=== PATIENT | male | born 1955 | race Caucasian/White ===

== ENCOUNTER → 2019-06-29 | Outpatient (CLI) | payer OTHER ==
[~2019-06-29] MED LIST: MIDRIN (DURADR1 CAP PO
== END | disposition home or self-care (01) ==
LOC: CT 00:10
DX: J43.8 Other emphysema (principal); I72.8 Aneurysm of other specified arteries

== ENCOUNTER → 2020-08-30 | Outpatient (CLI) | payer OTHER ==
[~2020-08-30] MED LIST changes: +AMLODIPINE BESY10 MG PO; +ASPIRIN81 M1 PO; +FINASTERIDE5 M1 PO; +FLOMAX0.4 MG PO; +Lopressor25 MG PO; +POTASSIUM CHLO10 ME5 PO; +ZYLOPRIM100 MG PO; +ZYRTEC10 M2 PO
== END | disposition home or self-care (01) ==
LOC: COVID19 13:00
PROVIDERS: ATTEND Hospitalist
DX: U07.1 COVID-19 (principal)

== ENCOUNTER 2020-08-31 10:26 | Inpatient (IN) | payer OTHER ==
[~2020-08-31] VITALS: Ht 172.7 cm; Wt 86.6 kg
[~2020-08-31 10:26] MED LIST changes: -AMLODIPINE BESY10 MG PO; -ASPIRIN81 M1 PO; -FINASTERIDE5 M1 PO; -FLOMAX0.4 MG PO; -Lopressor25 MG PO; -POTASSIUM CHLO10 ME5 PO; -ZYLOPRIM100 MG PO; -ZYRTEC10 M2 PO
[2020-08-31 10:37] VITALS: BP 122/67
[2020-08-31 10:45] LABS: BASO % 0.2 % (0.0-1.0); EOS % 0.4 % (1.0-4.0); HEMATOCRIT 40.3 % (42.0-52.0); LYMPH # 0.9 10*3/uL (1.3-4.4); LYMPH % 18.8 % (27.0-41.0); MEAN CELL VOLUME 80.4 fl (80.0-94.0); MEAN CORPUSCULAR HGB 27.1 pg (27.0-31.0); MEAN CORPUSCULAR HGB CONC 33.7 g/dl (33.0-37.0); MEAN PLATELET VOLUME 10.6 fl (9.6-12.3); MONO # 0.3 10*3/uL (0.1-1.0); MONO % 5.8 % (3.0-9.0); NEUT # 3.7 10*3/uL (2.3-7.9); NEUT % 74.4 % (47.0-73.0); PLATELET COUNT AUTOMATED 142 10*3/uL (130-400); RED BLOOD COUNT 5.01 10*6/uL (4.50-5.90); RED CELL DISTRI WIDTH 14.5 % (0-14.5)
[2020-08-31 10:56] LABS: ACT PARTIAL THROMBO TIME 32.5 SECONDS (20.0-32.1)
[2020-08-31 11:01] LABS: ALKALINE PHOSPHATASE 201 U/L (45-117); BUN 38 mg/dl (7-24); CHLORIDE 108 mmol/L (98-107); CREATININE 2.48 mg/dL (0.70-1.30); POTASSIUM 3.7 mmol/L (3.5-5.1); SGOT/AST 49 IU/L (3-35); SGPT/ALT 35 U/L (12-78); SODIUM 139 mmol/L (136-145)
[2020-08-31 11:04] LABS: TROPONIN I < 0.015 ng/ml (<0.045)
--- NOTE | 2020-08-31 12:47 | NUR ---
PT'S SISTER ALFONSO JOHNSON CALLS...[phone]. DR IN WITH PT NOW, WILL CALL BACK LATER TO SPEAK WITH PT.
--- NOTE | 2020-08-31 13:00 | NUR ---
VERBAL ORDER TO CANCEL EKG #2 AND #3
--- NOTE | 2020-08-31 14:21 | NUR ---
NOW CALLS AND SPEAKS AT LENGTH WITH PT. MEAL TRAY FINISHED. PT HAS NO VOICED COMPLAINTS. POX REMAINS BETWEEN 90-91% ON 4L NC O2 SINCE ARRIVAL. PT STATES SOB HAS RESOLVED. OTHER VITALS STABLE AND WITHIN NORMAL LIMITS. WATCHING TV.
[2020-08-31 14:22] VITALS: BP 126/66
--- NOTE | 2020-08-31 15:02 | NUR ---
NURSE REPORT TO ABBEY EASLEY, FOR CO NTINUATION OF CARE.
[2020-08-31] MEDS ORDERED: FLOMAX0.4 MG PO (15:25)
[2020-08-31 15:29] VITALS: BP 105/73
--- NOTE | 2020-08-31 15:39 | NUR ---
PT [facility] AND IS NOT SURE WHAT MEDICATIONS HE TAKES OTHER THAN FLOMAX FOR HIS PROSTATE.
--- NOTE | 2020-08-31 16:02 | NUR ---
REPIRATORY AT BEDSIDE TO DRAW ABG'S
[2020-08-31 16:15] VITALS: BP 118/80
[2020-08-31 16:25] LABS: ABG BASE EXCESS -4.2 mmol/L (-2.0-2.0); ARTERIAL BLOOD GAS PH 7.453 (7.35-7.45)
--- NOTE | 2020-08-31 16:25 | NUR ---
I DID NOW SPEAK WITH PT'S FRIEND CARLOS WHO PROVIDED ME HIS MED LIST FROM HOME BEST SHE COULD DETERMNINE AND INPUT IT INTO THE MED-REC
[2020-08-31] MEDS ORDERED: Lopressor25 MG PO (16:27)
[2020-08-31] MEDS ORDERED: ZYRTEC10 M2 PO (16:27)
[2020-08-31] MEDS ORDERED: FINASTERIDE5 M1 PO (16:28)
[2020-08-31] MEDS ORDERED: ASPIRIN81 M1 PO (16:29)
[2020-08-31] MEDS ORDERED: AMLODIPINE BESY10 MG PO (16:29)
[2020-08-31] MEDS ORDERED: POTASSIUM CHLO10 ME5 PO (16:30)
[2020-08-31] MEDS ORDERED: ZYLOPRIM100 MG PO (16:31)
--- NOTE | 2020-08-31 17:21 | NUR ---
PT 02 INCREASED TO 8L PER PHYSICIAN.
--- NOTE | 2020-08-31 18:42 | NUR ---
ORTHOSTATIC BLOOD PRESSURES. 126/62 P-77 STANDING 119/62 P-80 STANDING.
[2020-08-31 19:06] VITALS: BP 102/62
[2020-08-31 20:51] VITALS: BP 116/82
--- NOTE | 2020-08-31 20:51 | NUR ---
A 64, admitted to , under the services of SACHIN Roberts DO with a diagnosis of SUSPECTED COVID-19. Chief complaint is SOB. Patient arrived via bed from ER. Monitor applied. Initial assessment completed. Vital signs taken and recorded. SACHIN ROBERTS DO notified of admission to the unit. Orders received. See assessment for past medical history, medications and allergies. Patient and/or family oriented to unit. [facility] visitation policy reviewed. Clothing/patient valuable form completed. RAMSES SCHMIDT
--- NOTE | 2020-08-31 22:10 | NUR ---
DR. YOON NOTIFIED OF CONSULT. PT ON 15LHF. PT O2 FLUCTUATING 88-94%. PER DR. YOON, PT TO HAVE ORDER FOR BIPAP. PT REFUSING TO BE INTUBATED, STATES "MY WAS NEVER THE SAME AFTER THAT, I DONT WANT ANY OF IT. ILL TRY THE BIPAP, BUT I WANT TO BE A COMFORT CARE" DR. YOON MADE AWARE. STATED TO PUT ORDER IN FOR CC, AND BIPAP ORDER. PT TO REMAIN ON FLOOR AND NOT BE TRANSFERRED TO ICU.
--- NOTE | 2020-08-31 23:00 | NUR ---
PLACED PATIENT ON BIPAP PER ORDER. 09/07, 75%O2, SPO2 98%, HR 73. TOLERATING WELL
[2020-09-01] VITALS: BP 116/84
--- NOTE | 2020-09-01 01:00 | NUR ---
PT TOLERATING BIPAP. NO COMPLAINTS. CALL LIGHT IN REACH
--- NOTE | 2020-09-01 04:00 | NUR ---
PT SLEEPING AT THIS TIME, BIPAP IN PLACE. PT RESPIRATIONS EASY AND UNLABORED. NO DISTRESS NOTED. CALL LIGHT IN REACH
[2020-09-01 06:06] LABS: ALBUMIN 2.6 gm/dl (3.1-4.5); CREATININE 1.7 mg/dL (0.70-1.30); POTASSIUM 4.3 mmol/L (3.5-5.1); TOTAL PROTEIN 6.5 gm/dL (6.4-8.2)
[2020-09-01 06:12] LABS: HEMATOCRIT 37.6 % (42.0-52.0); LYMPH # 0.5 10*3/uL (1.3-4.4); LYMPH % 10.2 % (27.0-41.0); MEAN CELL VOLUME 80.7 fl (80.0-94.0); MEAN CORPUSCULAR HGB CONC 33.5 g/dl (33.0-37.0); MEAN PLATELET VOLUME 10.7 fl (9.6-12.3); MONO # 0.2 10*3/uL (0.1-1.0); MONO % 3.5 % (3.0-9.0); NEUT # 4.4 10*3/uL (2.3-7.9); NEUT % 85.9 % (47.0-73.0); PLATELET COUNT AUTOMATED 156 10*3/uL (130-400); RED BLOOD COUNT 4.66 10*6/uL (4.50-5.90); RED CELL DISTRI WIDTH 14.3 % (0-14.5); THYROID STIM HORMONE (HS) 0.56 uIU/ml (0.358-4.75); WHITE BLOOD COUNT 5.1 10*3/uL (4.8-10.8)
--- NOTE | 2020-09-01 06:41 | NUR ---
DR. YOON CALLED. UPDATED ON PT. ORDERED ABG. RESPIRATORY NOTIFIED. NO OTHER ORDERS AT THIS TIME.
--- NOTE | 2020-09-01 06:42 | NUR ---
DR. DAWN'S ANSWERING SERVICE NOTIFIED OF CONSULT
[2020-09-01 07:15] LABS: VITAMIN D, 25-HYDROXY 51.7 ng/mL (30-100)
[2020-09-01 07:16] LABS: FERRITIN 810.8 ng/mL (22.0-322.0)
[2020-09-01 07:35] LABS: ABG BASE EXCESS -4.9 mmol/L (-2.0-2.0); ARTERIAL BLOOD GAS PH 7.42 (7.35-7.45)
[2020-09-01 08:00] VITALS: BP 119/74
--- NOTE | 2020-09-01 09:00 | NUR ---
Transportation Manager in to talk to patient. Patient states lives at home with girlfriend. There are no steps in the home. Physician: argentina shultz [facility] Home health services: none Patient's level of ADLs: INDEPENDENT Patient has working utilities: all working DME: none Follow-up physician's appointment after d/c: will be made by hospitalist nurse director upon discharge Does patient want to access PORTAL?: no Discharge plan discussed with patient, he lives at home with girlfriend, he states he gets around fine, he states he would like to return home when discharged. case mangaement will follow, patient is currently on 15l of oxygen,. CARLOS MCCARTNEY
[2020-09-01 12:00] VITALS: BP 117/79
[2020-09-01 16:00] VITALS: BP 120/67
[2020-09-01 20:00] VITALS: BP 107/68
[2020-09-02] VITALS: BP 106/75
--- NOTE | 2020-09-02 00:30 | NUR ---
HEPARIN GTT INITIATED PER 2 RN'S
--- NOTE | 2020-09-02 00:30 | NUR ---
Pt placed on BiPap / - FiO2 75% - Alarms on and audible - SpO2 99%
[2020-09-02 06:08] LABS: HEMATOCRIT 36.9 % (42.0-52.0); LYMPH # 0.6 10*3/uL (1.3-4.4); LYMPH % 6.5 % (27.0-41.0); MEAN CELL VOLUME 81.1 fl (80.0-94.0); MEAN CORPUSCULAR HGB 27.3 pg (27.0-31.0); MEAN CORPUSCULAR HGB CONC 33.6 g/dl (33.0-37.0); MEAN PLATELET VOLUME 9.8 fl (9.6-12.3); MONO # 0.3 10*3/uL (0.1-1.0); MONO % 3.7 % (3.0-9.0); NEUT # 7.9 10*3/uL (2.3-7.9); NEUT % 88.5 % (47.0-73.0); PLATELET COUNT AUTOMATED 184 10*3/uL (130-400); RED BLOOD COUNT 4.55 10*6/uL (4.50-5.90); RED CELL DISTRI WIDTH 14.2 % (0-14.5); WHITE BLOOD COUNT 8.9 10*3/uL (4.8-10.8)
[2020-09-02 06:17] LABS: ALBUMIN 2.6 gm/dl (3.1-4.5); CREATININE 1.48 mg/dL (0.70-1.30); POTASSIUM 4.3 mmol/L (3.5-5.1); TOTAL PROTEIN 6.3 gm/dL (6.4-8.2)
[2020-09-02 07:57] LABS: ABG BASE EXCESS -3.8 mmol/L (-2.0-2.0); ARTERIAL BLOOD GAS PH 7.441 (7.35-7.45)
[2020-09-02 08:00] VITALS: BP 120/67
--- NOTE | 2020-09-02 08:20 | NUR ---
PT'S POX AT 78% ON 15L HIGH FLOW NASAL CANNULA. PATIENT STATES HE DOES FEEL SHORT OF BREATH BUT STATES "I DO NOT WANT ANYTHING DONE FOR ME, JUST LET ME " PATIENT IS AGGREEABLE TO WEAR NONREBREATHER. NONREBREATHER APPLIED, PULSE OX NOW 91%. WILL CONTINUE TO MONITOR CLOSELY.
--- NOTE | 2020-09-02 08:37 | NUR ---
DR CLEMENTS NOTIFIED OF PATIENTS NEED FOR NONREBREATHER.
--- NOTE | 2020-09-02 09:00 | NUR ---
case management talks with patient, he continues on bipap and 15l of oxygen, not ready for discharge at this time, patient continues to want to be discharged home when stable. case management will follow
--- NOTE | 2020-09-02 10:00 | NUR ---
Received call from oFx at the [facility]. Given clinical update. He states he will call again tomorrow to check on patient.
[2020-09-02 12:00] VITALS: BP 147/50
[2020-09-02 16:00] VITALS: BP 117/56
--- NOTE | 2020-09-02 19:30 | NUR ---
PATIENT RESTING IN BED. DENIES ANY NEEDS OR COMPLAINTS AT THIS TIME. ASSESSMENT COMPLETE. 15L NONREBREATHER MASK IN PLACE. CALL LIGHT WITHIN REACH. HEPARIN DRIP RUNNING PER ORDER.
[2020-09-02 20:00] VITALS: BP 129/55
--- NOTE | 2020-09-02 20:00 | NUR ---
PATIENT DNRCC PATIENT ON CHART BUT WAS NOT SIGNED. CALLED AND UP TO SIGN PAPER.
--- NOTE | 2020-09-02 23:59 | NUR ---
24 HR chart check completed.
[2020-09-03] VITALS: BP 107/57
--- NOTE | 2020-09-03 00:40 | NUR ---
PATIENT APPT 27.6. HEPARIN DRIP ADJUSTED PER POLICY. 40U/KG BOLUS GIVEN AND RATE INCREASED 2 UNITS/KG/HR.
[2020-09-03 06:57] LABS: ALBUMIN 2.7 gm/dl (3.1-4.5); ALKALINE PHOSPHATASE 232 U/L (45-117); BUN 34 mg/dl (7-24); CHLORIDE 112 mmol/L (98-107); CREATININE 1.39 mg/dL (0.70-1.30); LDH 498 U/L (87-241); POTASSIUM 4.2 mmol/L (3.5-5.1); SGOT/AST 55 IU/L (3-35); SGPT/ALT 63 U/L (12-78); SODIUM 141 mmol/L (136-145); TOTAL PROTEIN 6.4 gm/dL (6.4-8.2)
[2020-09-03 07:01] LABS: BASO % 0.1 % (0.0-1.0); LYMPH # 0.8 10*3/uL (1.3-4.4); LYMPH % 8.1 % (27.0-41.0); MEAN CELL VOLUME 81.4 fl (80.0-94.0); MEAN CORPUSCULAR HGB 26.9 pg (27.0-31.0); MEAN CORPUSCULAR HGB CONC 33.1 g/dl (33.0-37.0); MEAN PLATELET VOLUME 10.3 fl (9.6-12.3); MONO # 0.5 10*3/uL (0.1-1.0); NEUT # 8.7 10*3/uL (2.3-7.9); NEUT % 85.1 % (47.0-73.0); RED BLOOD COUNT 4.79 10*6/uL (4.50-5.90); RED CELL DISTRI WIDTH 14.5 % (0-14.5); WHITE BLOOD COUNT 10.2 10*3/uL (4.8-10.8)
[2020-09-03 07:09] LABS: PLATELET COUNT AUTOMATED 253 10*3/uL (130-400)
[2020-09-03 07:17] LABS: CPK 33 U/L (39-308)
--- NOTE | 2020-09-03 07:25 | NUR ---
NOTIFIED OF LACTIC ACID OF 2.1 AND APPT OF 83.4.
[2020-09-03 08:00] VITALS: BP 112/72
--- NOTE | 2020-09-03 08:21 | NUR ---
DR. CLEMENTS INFORMED THAT PATIENT HAS NO IV ACCESS AFTER 4 NURSES HAVE TRIED. NEW ORDER RECIEVED TO CONTACT SURGERY. MESSAGE SENT.
[2020-09-03 09:36] LABS: ABG BASE EXCESS -2.7 mmol/L (-2.0-2.0); ARTERIAL BLOOD GAS PH 7.498 (7.35-7.45)
--- NOTE | 2020-09-03 09:43 | NUR ---
PT WAS ON NRB AND RT DID ABG. PT WANTED TO EAT BREAKFAST SO RT PLACED PT ON 15LHFNC SPO2 82-84%, PLACED BACK ON NRB SPO2 89-90%. RT EXPLAINED THE IMPORTANCE OF WEARING HIS BIPAP AFTER HE EATS AND HE REFUSED TO WEAR IT. RT DID TELL HIM THAT IT WILL HELP HIM THE MOST TO GET BETTER. HE STILL REFUSED TO WEAR IT.
[2020-09-03 12:00] VITALS: BP 112/72
[2020-09-03 16:00] VITALS: BP 115/76
--- NOTE | 2020-09-03 19:30 | NUR ---
PT RESTING IN BED. RESPS EASY AND NON LABORED. VSS EXCEPT SPO2. SPO2 IN THE 80'S. ON 15L NRB AT THIS TIME. OFFERED PT BIPAP/ALTERNATIVE OXYGEN MEASURES. PT ADAMENTLY REFUSES. RESPIRATORY AND DR BILL MADE AWARE OF PT STATUS AND WISHES. SLIGHTLY DIAPHORETIC. ALL OTHER VSS. WILL CONTINUE TO MONITOR. CALL LIGHT WITHIN REACH.
[2020-09-03 20:00] VITALS: BP 118/72
--- NOTE | 2020-09-03 20:03 | NUR ---
PT SPO2 CONTINUES TO STAY IN THE 80'S ON 15L NRB.
--- NOTE | 2020-09-03 21:00 | NUR ---
HERPARIN DRIP STOPPED PER ORDER. PTT WAS 139. DR BILL NOTIFIED.
--- NOTE | 2020-09-03 22:00 | NUR ---
HEPARIN DRIP RESTARTED PER POLICY.APTT REORDERED.
--- NOTE | 2020-09-03 22:04 | NUR ---
PT HEART RATE MID 40'S-50'S. ASYMPTOMATIC. DR BILL AWARE. SPO2 CURRENTLY 95% ON 15L NRB. WILL CONTINUE TO MONITOR. CALL LIGHT WITHIN REACH.
[2020-09-04] VITALS: BP 134/82
--- NOTE | 2020-09-04 00:59 | NUR ---
PT SLEEPING. RESPS EASY AND NON LABORED. NO S/S OF DISTRESS NOTED. HR REMAINS IN THE 40-50'S. SPO2 IN THE 90'S, DESATS W ANY EXERTION. WILL CONTINUE TO MONITOR. CALL LIGHT WITHIN REACH.
[2020-09-04 03:52] LABS: BASO % 0.1 % (0.0-1.0); HEMATOCRIT 35.3 % (42.0-52.0); LYMPH # 0.5 10*3/uL (1.3-4.4); LYMPH % 7.3 % (27.0-41.0); MEAN CELL VOLUME 79.9 fl (80.0-94.0); MEAN CORPUSCULAR HGB 26.9 pg (27.0-31.0); MEAN CORPUSCULAR HGB CONC 33.7 g/dl (33.0-37.0); MEAN PLATELET VOLUME 9.6 fl (9.6-12.3); MONO # 0.3 10*3/uL (0.1-1.0); MONO % 4.2 % (3.0-9.0); NEUT # 6.2 10*3/uL (2.3-7.9); NEUT % 86.8 % (47.0-73.0); PLATELET COUNT AUTOMATED 214 10*3/uL (130-400); RED BLOOD COUNT 4.42 10*6/uL (4.50-5.90); RED CELL DISTRI WIDTH 14.2 % (0-14.5); WHITE BLOOD COUNT 7.1 10*3/uL (4.8-10.8)
[2020-09-04 04:09] LABS: ALBUMIN 2.5 gm/dl (3.1-4.5); ALKALINE PHOSPHATASE 241 U/L (45-117); BUN 36 mg/dl (7-24); CHLORIDE 114 mmol/L (98-107); CREATININE 1.38 mg/dL (0.70-1.30); LDH 479 U/L (87-241); POTASSIUM 4.2 mmol/L (3.5-5.1); SGOT/AST 55 IU/L (3-35); SGPT/ALT 85 U/L (12-78); SODIUM 141 mmol/L (136-145); TOTAL PROTEIN 5.8 gm/dL (6.4-8.2)
--- NOTE | 2020-09-04 04:30 | NUR ---
PTT 81.6. HERPARIN TURNED OFF PER POLICY. NEW APTT ORDERED.
--- NOTE | 2020-09-04 05:30 | NUR ---
HEPARIN RESTARTED PER POLICY
[2020-09-04 08:00] VITALS: BP 124/94
--- NOTE | 2020-09-04 09:00 | NUR ---
case management talks with patient. discussed with him if he had any other insurance beside [facility]. he stated VA was the only insurance he had. discussed with him a discharge plan and he will be returning home, he will need assessed for home oxygen and it will need to be delivered from [place]. patient is currently on 15l of oxygen, case management will follow
--- NOTE | 2020-09-04 10:49 | NUR ---
Pt has midline to LAC but is on heparin gtt and multiple antibiotics. IV started right antecubital with #20 angiocath after 2 attempts. The IV site was prepped with Chloraprep. Heparin lock attached. Sterile dressing applied. Patient tolerated precedure well. Procedure performed according to [facility] policy & procedure.
[2020-09-04 12:00] VITALS: BP 115/64
[2020-09-04 16:00] VITALS: BP 148/53
[2020-09-04 20:00] VITALS: BP 117/71
[2020-09-05] VITALS: BP 128/80
--- NOTE | 2020-09-05 05:08 | NUR ---
24 HR chart check completed.
--- NOTE | 2020-09-05 05:35 | NUR ---
PATIENT REFUSED PROTONIX PILL AND ALSO TO HAVE HIS WEIGHT DONE THIS MORNING D/T NOT FEELING LIKE HE COULD LAY FLAT AT THIS TIME.
[2020-09-05 07:38] LABS: BASO % 0.2 % (0.0-1.0); HEMATOCRIT 37.3 % (42.0-52.0); LYMPH # 0.6 10*3/uL (1.3-4.4); LYMPH % 5.8 % (27.0-41.0); MEAN CELL VOLUME 81.6 fl (80.0-94.0); MEAN CORPUSCULAR HGB 27.1 pg (27.0-31.0); MEAN CORPUSCULAR HGB CONC 33.2 g/dl (33.0-37.0); MONO # 0.4 10*3/uL (0.1-1.0); MONO % 3.4 % (3.0-9.0); NEUT # 9.5 10*3/uL (2.3-7.9); NEUT % 88.1 % (47.0-73.0); PLATELET COUNT AUTOMATED 278 10*3/uL (130-400); RED BLOOD COUNT 4.57 10*6/uL (4.50-5.90); RED CELL DISTRI WIDTH 14.6 % (0-14.5); WHITE BLOOD COUNT 10.8 10*3/uL (4.8-10.8)
[2020-09-05 07:50] LABS: ALBUMIN 2.5 gm/dl (3.1-4.5); ALKALINE PHOSPHATASE 257 U/L (45-117); BUN 34 mg/dl (7-24); CHLORIDE 113 mmol/L (98-107); CREATININE 1.36 mg/dL (0.70-1.30); LDH 583 U/L (87-241); SGOT/AST 46 IU/L (3-35); SGPT/ALT 93 U/L (12-78); SODIUM 143 mmol/L (136-145)
[2020-09-05 08:00] VITALS: BP 108/71
[2020-09-05 08:21] LABS: ABG BASE EXCESS -1.9 mmol/L (-2.0-2.0); ARTERIAL BLOOD GAS PH 7.508 (7.35-7.45)
--- NOTE | 2020-09-05 10:30 | NUR ---
case management called [facility] regarding what percentage of service connection patient is, spoke to Kayleigh, she stated patient is not service connected and only has [facility] for [facility]. discussed with her if [facility] had any [facility] beds for covid positive and she stated they recently opened another floor for covid and it is to capacity. patient would like to return home when discharged. case management will follow
[2020-09-05 12:00] VITALS: BP 122/77
[2020-09-05 16:00] VITALS: BP 126/72
[2020-09-05 16:20] VITALS: BP 116/48
--- NOTE | 2020-09-05 19:26 | NUR ---
24 HR chart check completed.
[2020-09-05 20:00] VITALS: BP 106/63
--- NOTE | 2020-09-05 22:34 | NUR ---
HELD METOPROLOL HEART RATE LOW 40'S TO 50'S.
[2020-09-06] VITALS: BP 110/60
[2020-09-06 06:38] LABS: ALKALINE PHOSPHATASE 257 U/L (45-117); BUN 35 mg/dl (7-24); CHLORIDE 113 mmol/L (98-107); CREATININE 1.24 mg/dL (0.70-1.30); POTASSIUM 3.9 mmol/L (3.5-5.1); SGOT/AST 35 IU/L (3-35); SGPT/ALT 86 U/L (12-78); SODIUM 141 mmol/L (136-145)
[2020-09-06 06:39] LABS: HEMATOCRIT 36.8 % (42.0-52.0); MEAN CELL VOLUME 80.5 fl (80.0-94.0); MEAN CORPUSCULAR HGB 27.6 pg (27.0-31.0); MEAN CORPUSCULAR HGB CONC 34.2 g/dl (33.0-37.0); MEAN PLATELET VOLUME 10.1 fl (9.6-12.3); PLATELET COUNT AUTOMATED 280 10*3/uL (130-400); RED BLOOD COUNT 4.57 10*6/uL (4.50-5.90); RED CELL DISTRI WIDTH 14.6 % (0-14.5)
[2020-09-06 06:40] LABS: ALBUMIN 2.4 gm/dl (3.1-4.5)
[2020-09-06 07:24] LABS: TOTAL CELLS COUNTED 100 #CELLS
[2020-09-06 07:25] LABS: BURR CELLS FEW; PLATELET SUFFICIENCY NORMAL (NORMAL)
--- NOTE | 2020-09-06 07:55 | NUR ---
NOTIFIED DR. RUIZ OF PTT 74.2 AND THIS IS STILL WITHIN THE HEPARIN PROTOCOL OF NO CHANGE.
[2020-09-06 08:00] VITALS: BP 109/67
[2020-09-06 12:00] VITALS: BP 115/71
[2020-09-06 16:00] VITALS: BP 133/96
[2020-09-06 20:00] VITALS: BP 123/75
--- NOTE | 2020-09-06 22:30 | NUR ---
METOPROLOL HELD HEART RATE 40'S TO 50'S.
[2020-09-07] VITALS: BP 133/79
--- NOTE | 2020-09-07 02:01 | NUR ---
24 HR chart check completed.
[2020-09-07 06:23] LABS: HEMATOCRIT 36.4 % (42.0-52.0); MEAN CELL VOLUME 79.8 fl (80.0-94.0); MEAN CORPUSCULAR HGB CONC 33.8 g/dl (33.0-37.0); MEAN PLATELET VOLUME 10.5 fl (9.6-12.3); PLATELET COUNT AUTOMATED 288 10*3/uL (130-400); RED BLOOD COUNT 4.56 10*6/uL (4.50-5.90); RED CELL DISTRI WIDTH 14.6 % (0-14.5); WHITE BLOOD COUNT 10.9 10*3/uL (4.8-10.8)
[2020-09-07 06:28] LABS: ALBUMIN 2.4 gm/dl (3.1-4.5); BUN 36 mg/dl (7-24); CHLORIDE 111 mmol/L (98-107); LDH 521 U/L (87-241); SGOT/AST 29 IU/L (3-35); SGPT/ALT 80 U/L (12-78); SODIUM 139 mmol/L (136-145); TOTAL PROTEIN 5.8 gm/dL (6.4-8.2)
[2020-09-07 06:31] LABS: ALKALINE PHOSPHATASE 245 U/L (45-117); CREATININE 1.15 mg/dL (0.70-1.30)
[2020-09-07 07:19] LABS: ATYPICAL LYMPHS 1 % (0-0); BURR CELLS FEW; OVALOCYTES FEW; PLATELET SUFFICIENCY NORMAL (NORMAL); POLYCHROMASIA SLIGHT; SCHISTOCYTES FEW; TOTAL CELLS COUNTED 100 #CELLS
[2020-09-07 07:20] LABS: MICROCYTOSIS SLIGHT
[2020-09-07 08:00] VITALS: BP 108/60
[2020-09-07 12:00] VITALS: BP 111/63
[2020-09-07 16:00] VITALS: BP 111/68
[2020-09-07 20:00] VITALS: BP 114/78
--- NOTE | 2020-09-07 22:32 | NUR ---
24 HR chart check completed.
[2020-09-08] VITALS: BP 138/81
[2020-09-08 07:31] LABS: HEMATOCRIT 36.9 % (42.0-52.0); MEAN CELL VOLUME 79.7 fl (80.0-94.0); MEAN CORPUSCULAR HGB CONC 33.9 g/dl (33.0-37.0); MEAN PLATELET VOLUME 10.4 fl (9.6-12.3); PLATELET COUNT AUTOMATED 288 10*3/uL (130-400); RED BLOOD COUNT 4.63 10*6/uL (4.50-5.90); RED CELL DISTRI WIDTH 14.7 % (0-14.5); WHITE BLOOD COUNT 12.1 10*3/uL (4.8-10.8)
[2020-09-08 07:52] LABS: TOTAL CELLS COUNTED 100 #CELLS
[2020-09-08 07:53] LABS: BURR CELLS FEW; MICROCYTOSIS SLIGHT; PLATELET SUFFICIENCY NORMAL (NORMAL); POLYCHROMASIA SLIGHT; SCHISTOCYTES FEW
[2020-09-08 08:00] VITALS: BP 110/50
[2020-09-08 08:04] LABS: ALBUMIN 2.4 gm/dl (3.1-4.5); ALKALINE PHOSPHATASE 228 U/L (45-117); BUN 36 mg/dl (7-24); CHLORIDE 109 mmol/L (98-107); CREATININE 1.15 mg/dL (0.70-1.30); LDH 470 U/L (87-241); POTASSIUM 4.4 mmol/L (3.5-5.1); SGOT/AST 24 IU/L (3-35); SGPT/ALT 67 U/L (12-78); SODIUM 137 mmol/L (136-145); TOTAL PROTEIN 5.8 gm/dL (6.4-8.2)
--- NOTE | 2020-09-08 09:00 | NUR ---
[facility], spoke to Lori, she stated there are no covid beds available today. case management will check with Lori tomorrow regarding available beds
[2020-09-08 12:00] VITALS: BP 103/68
[2020-09-08 16:00] VITALS: BP 106/51
[2020-09-08 20:00] VITALS: BP 100/52
--- NOTE | 2020-09-08 20:44 | NUR ---
24 HR chart check completed.
[2020-09-09] VITALS: BP 113/57
[2020-09-09 06:48] LABS: HEMATOCRIT 36.2 % (42.0-52.0); MEAN CELL VOLUME 82.3 fl (80.0-94.0); MEAN CORPUSCULAR HGB 27.5 pg (27.0-31.0); MEAN CORPUSCULAR HGB CONC 33.4 g/dl (33.0-37.0); MEAN PLATELET VOLUME 10.3 fl (9.6-12.3); PLATELET COUNT AUTOMATED 229 10*3/uL (130-400); RED CELL DISTRI WIDTH 14.9 % (0-14.5); WHITE BLOOD COUNT 11.8 10*3/uL (4.8-10.8)
[2020-09-09 07:17] LABS: ALBUMIN 2.2 gm/dl (3.1-4.5); ALKALINE PHOSPHATASE 262 U/L (45-117); BUN 35 mg/dl (7-24); CHLORIDE 109 mmol/L (98-107); CREATININE 1.29 mg/dL (0.70-1.30); LDH 437 U/L (87-241); POTASSIUM 4.3 mmol/L (3.5-5.1); SGOT/AST 32 IU/L (3-35); SGPT/ALT 68 U/L (12-78); SODIUM 137 mmol/L (136-145); TOTAL PROTEIN 5.7 gm/dL (6.4-8.2)
[2020-09-09 07:31] LABS: ACT PARTIAL THROMBO TIME 60.3 SECONDS (20.0-32.1)
--- NOTE | 2020-09-09 07:44 | NUR ---
APPT 60.3 NO CHNAGE PER PROTOCOL.
--- NOTE | 2020-09-09 07:50 | NUR ---
Shift chart check completed.
[2020-09-09 08:00] VITALS: BP 98/70
--- NOTE | 2020-09-09 08:00 | NUR ---
PATIENT RESTING IN BED. DENIES ANY NEEDS. ON 15L NONREBREATHER. ASSESSMENT COMPLETE. CALL LIGHT IN REACH.
[2020-09-09 08:01] LABS: TOTAL CELLS COUNTED 100 #CELLS
[2020-09-09 08:02] LABS: OVALOCYTES FEW; PLATELET SUFFICIENCY NORMAL (NORMAL); POLYCHROMASIA SLIGHT; SCHISTOCYTES FEW
--- NOTE | 2020-09-09 08:55 | NUR ---
case management contacted [facility] regarding covid bed availability. left message for Lori director of casework to return call regarding available beds
--- NOTE | 2020-09-09 11:22 | NUR ---
case management received a return call from Marleni, case assistant from [facility] regarding patient transfer. Marleni stated she attempt to transfer patient to [facility], once patient's information is faxed she will have it reviewed with her doctor. once accepted transportation will be set up per [place]. case management talked with patient regarding transfer to [place]. he was in agreement to transfer. patient's chart faxed to Marleni at [facility]. will await a return call
[2020-09-09 12:00] VITALS: BP 97/63
[2020-09-09 16:00] VITALS: BP 103/70
--- NOTE | 2020-09-09 19:42 | NUR ---
24 HR chart check completed.
[2020-09-09 20:00] VITALS: BP 110/68
[2020-09-10] VITALS: BP 128/76
[2020-09-10 07:07] LABS: HEMATOCRIT 36.1 % (42.0-52.0); MEAN CELL VOLUME 82.8 fl (80.0-94.0); MEAN CORPUSCULAR HGB 27.3 pg (27.0-31.0); MEAN PLATELET VOLUME 10.3 fl (9.6-12.3); PLATELET COUNT AUTOMATED 232 10*3/uL (130-400); RED BLOOD COUNT 4.36 10*6/uL (4.50-5.90); RED CELL DISTRI WIDTH 15.2 % (0-14.5); WHITE BLOOD COUNT 11.1 10*3/uL (4.8-10.8)
[2020-09-10 07:32] LABS: ALBUMIN 2.2 gm/dl (3.1-4.5); ALKALINE PHOSPHATASE 255 U/L (45-117); BUN 33 mg/dl (7-24); CHLORIDE 109 mmol/L (98-107); LDH 387 U/L (87-241); POTASSIUM 4.2 mmol/L (3.5-5.1); SGOT/AST 31 IU/L (3-35); SGPT/ALT 79 U/L (12-78); SODIUM 138 mmol/L (136-145)
[2020-09-10 07:43] LABS: BURR CELLS FEW; PLATELET SUFFICIENCY NORMAL (NORMAL); TOTAL CELLS COUNTED 100 #CELLS
[2020-09-10 08:00] VITALS: BP 103/49
--- NOTE | 2020-09-10 08:00 | NUR ---
PATIENT RESTING IN BED. DENIES ANY NEEDS. ASSESSMENT COMPLETE. HEPARIN DRIP INFUSING PER ORDER. CALL LIGHT IN REACH.
--- NOTE | 2020-09-10 09:12 | NUR ---
case management contacted Marleni, porter sample case at [facility] regarding bed availibilty to transfer patient. Marleni stated patient would have to be placed in their covid ICU and there are no beds available today. Marleni will call case management if a bed becomes available today if not case management will contact Marleni tomorrow morning
--- NOTE | 2020-09-10 10:00 | NUR ---
APPT 45.8 BOLUS GIVEN PER PROTOCOL AND INCREASED DRIP BY 2 UNITS/KG/HR. VERIFIED BY ABBEY MENDOZA. DRIP NOW RUNNING AT 13.76 ML/HR.
--- NOTE | 2020-09-10 11:25 | NUR ---
DUE TO COVID PRECAUTIONS AND ASSEMBLER SURGICAL GARMENT/HOSTESS PARTY SALES REPRESENTATIVE UNABLE TO SPEAK WITH PATIENT AT BEDSIDE. ASSEMBLER SURGICAL GARMENT PROVIDED A COPY OF DPOAHC PAPERS TO ABBEY MENDOZA, PATIENTS RN WAS IN AN ISOLATION ROOM, TO GIVE TO THE PATIENT TO COMPLETE. CHUY PROVIDED A NOTE WITH THIS ASSEMBLER SURGICAL GARMENT NUMBER FOR HIM TO CONTACT IF HE SHOULD HAVE ANY QUESTIONS.
[2020-09-10 12:00] VITALS: BP 116/82
--- NOTE | 2020-09-10 12:00 | NUR ---
PATIENT PROVIDED WITH POA PAPERS THAT HE ASKED FOR.
--- NOTE | 2020-09-10 12:39 | NUR ---
EXTRACTOR TENDER RAW STOCK RECEIVED CALL FROM PATIENT. EXTRACTOR TENDER RAW STOCK EXPLAINED DPOA-HC PAPER WORK TO HIM. EXTRACTOR TENDER RAW STOCK EXPLAINED THEY WOULD BE WITNESSED WHEN RN BRINGS THE DOCUMENTS BACK OUT TO RN STATION.
--- NOTE | 2020-09-10 12:54 | NUR ---
Shift chart check completed.
[2020-09-10 16:00] VITALS: BP 119/72
--- NOTE | 2020-09-10 16:48 | NUR ---
APPT 65.2 NO CHANGE PER PROTOCOL.
[2020-09-10 20:00] VITALS: BP 126/77
--- NOTE | 2020-09-11 02:22 | NUR ---
24 HR chart check completed.
[2020-09-11 06:15] LABS: ALBUMIN 2.1 gm/dl (3.1-4.5); ALKALINE PHOSPHATASE 285 U/L (45-117); BUN 37 mg/dl (7-24); CHLORIDE 110 mmol/L (98-107); CPK 15 U/L (39-308); LDH 348 U/L (87-241); POTASSIUM 4.4 mmol/L (3.5-5.1); SGOT/AST 38 IU/L (3-35); SGPT/ALT 120 U/L (12-78); SODIUM 138 mmol/L (136-145)
[2020-09-11 06:38] LABS: HEMATOCRIT 35.2 % (42.0-52.0); MEAN CELL VOLUME 82.8 fl (80.0-94.0); MEAN CORPUSCULAR HGB 27.5 pg (27.0-31.0); MEAN CORPUSCULAR HGB CONC 33.2 g/dl (33.0-37.0); MEAN PLATELET VOLUME 10.8 fl (9.6-12.3); PLATELET COUNT AUTOMATED 228 10*3/uL (130-400); RED BLOOD COUNT 4.25 10*6/uL (4.50-5.90); RED CELL DISTRI WIDTH 15.3 % (0-14.5); WHITE BLOOD COUNT 11.8 10*3/uL (4.8-10.8)
[2020-09-11 07:58] LABS: BURR CELLS MODERATE; PLATELET SUFFICIENCY NORMAL (NORMAL); TOTAL CELLS COUNTED 100 #CELLS
[2020-09-11 08:00] VITALS: BP 109/66
--- NOTE | 2020-09-11 08:15 | NUR ---
RESTING IN BED. SOB WITH MINIMAL EXERTION. NONREBREATHER IN USE. NO C/O AT THIS TIME. CALL LIGHT IN REACH.
--- NOTE | 2020-09-11 08:58 | NUR ---
ELECTROSLAG WELDING MACHINE OPERATOR AND LEAD NETWORK ARCHITECT CARLOS COMPLETED DPOAHC AND PLACED A COPY ON THE CHART.
--- NOTE | 2020-09-11 09:10 | NUR ---
TOLERATED ROUTINE MED WITH NO PROBLEM. NO C/O AT THIS TIME. OXYGEN IN USE VIA NONREBREATHER. CALL LIGHT IN REACH.
--- NOTE | 2020-09-11 09:33 | NUR ---
case management contacted Shakeel case filler at [facility] regarding bed availability. Shakeel stated she will check on an available ICU bed due to patient being on 15 liters of oxygen. she stated she will contact case management if there is an available bed. updated clinicals faxed to shakeel per her request
--- NOTE | 2020-09-11 10:38 | NUR ---
case management received a call from Marleni from [facility], she stated she possibly has a bed for patient today. current vitals given to her along with Dr Berry's phone number for [place] doctor to be calling. Marleni stated she would call when she has a bed ready
[2020-09-11 12:00] VITALS: BP 119/72
--- NOTE | 2020-09-11 13:30 | NUR ---
case management received a call from Marleni at [facility]. she stated the [place] doctor has accepted patient and patient will be transferred to [facility] today. she will make the transportation arrangements for chart picker at [place] at 6pm [facility]. she stated [facility] will need the [facility]'s complete chart and any imaging on a disc that needs send to [place] with the patient, she would also like to have a nurse to nurse to number [phone] ext [phone] not to be done until patient is on his way to [place]. notified patient he would be transferred to [place] today, also notified nursing floor
--- NOTE | 2020-09-11 13:53 | NUR ---
Notified patients girlfrienkerwin Corrigan that the [facility] will be sending transportation to pick patient up twin at 6PM and he will be at the [facility].
[2020-09-11 16:00] VITALS: BP 117/73
--- NOTE | 2020-09-11 16:00 | NUR ---
RESTING IN BED, WAITING FOR AMBULANCE TO TRANSPORT TO [place]. OXYGEN IN USE. NO C/O AT THIS TIME.
--- NOTE | 2020-09-11 16:57 | NUR ---
PT TRANSPORTED VIA AMBULANCE TO [facility]. DISCHARGE INSTRUCTION GIVEN TO AMBULANCE. IV INTACT WTIH HEPARIN INFUSING. OXYGEN IN USE. VIA NONREBREATHER. BELONGINGS SENT WITH PT.
--- NOTE | 2020-09-11 17:44 | NUR ---
[facility] RN CALLED REPORT GIVEN.
== END 2020-09-11 17:03 | disposition short-term general hospital (02) | DRG 177 ==
LOC: ED 10:26 → 4E 13:06 → EDHOLD 13:06 → 4E 20:30
PROVIDERS: Family Medicine; Internal Medicine; Internal Medicine Critical Care Medicine; Physician Assistant; Student in an Organized Health Care Education/Training Program; ADMIT Emergency Medicine; ATTEND Emergency Medicine
PROC: 5A0935A Assistance with Respiratory Ventilation, Less than 24 Consecutive Hours, High Flow/Velocity Cannula (ICD-10-PCS; 2020-08-31)
PROC: 5A09357 Assistance with Respiratory Ventilation, Less than 24 Consecutive Hours, Continuous Positive Airway Pressure (ICD-10-PCS; principal; 2020-09-01)
PROC: 5A0935A Assistance with Respiratory Ventilation, Less than 24 Consecutive Hours, High Flow/Velocity Cannula (ICD-10-PCS; 2020-09-01)
PROC: 5A09357 Assistance with Respiratory Ventilation, Less than 24 Consecutive Hours, Continuous Positive Airway Pressure (ICD-10-PCS; 2020-09-02)
PROC: XW033E5 Introduction of Remdesivir Anti-infective into Peripheral Vein, Percutaneous Approach, New Technology Group 5 (ICD-10-PCS; 2020-09-02)
DX: U07.1 COVID-19 (principal); N17.0 Acute kidney failure with tubular necrosis; J96.01 Acute respiratory failure with hypoxia; J12.89 Other viral pneumonia; J44.0 Chronic obstructive pulmonary disease with (acute) lower respiratory infection; D68.59 Other primary thrombophilia; E44.0 Moderate protein-calorie malnutrition; G93.40 Encephalopathy, unspecified; I10 Essential (primary) hypertension; N40.0 Benign prostatic hyperplasia without lower urinary tract symptoms; Z66 Do not resuscitate; Z51.5 Encounter for palliative care; R70.0 Elevated erythrocyte sedimentation rate; D64.9 Anemia, unspecified; R79.89 Other specified abnormal findings of blood chemistry; E87.8 Other disorders of electrolyte and fluid balance, not elsewhere classified; R74.8 Abnormal levels of other serum enzymes; R07.89 Other chest pain; E03.9 Hypothyroidism, unspecified; I27.20 Pulmonary hypertension, unspecified; R53.81 Other malaise; E66.3 Overweight; Z68.29 Body mass index [BMI] 29.0-29.9, adult; Z87.891 Personal history of nicotine dependence; Z79.82 Long term (current) use of aspirin; Z79.899 Other long term (current) drug therapy; Z82.49 Family history of ischemic heart disease and other diseases of the circulatory system

== ENCOUNTER → 2021-08-07 | Outpatient (CLI) | payer OTHER ==
[~2021-08-07] MED LIST changes: +AMLODIPINE BESY10 MG PO; +ASPIRIN81 M1 PO; +FINASTERIDE5 M1 PO; +FLOMAX0.4 MG PO; +Lopressor25 MG PO; +POTASSIUM CHLO10 ME5 PO; +ZYLOPRIM100 MG PO; +ZYRTEC10 M2 PO
== END | disposition home or self-care (01) ==
LOC: COVID19 15:32
PROVIDERS: ATTEND Internal Medicine
DX: Z11.52 Encounter for screening for COVID-19 (principal)

== ENCOUNTER → 2022-03-17 | Outpatient (CLI) | payer OTHER | END | disposition home or self-care (01) | LOC: CARD 00:32 | PROVIDERS: ATTEND Nurse Practitioner Family | DX: I08.3 Combined rheumatic disorders of mitral, aortic and tricuspid valves (principal) ==

== ENCOUNTER → 2024-11-15 | Outpatient (CLI) | payer OTHER | END | disposition home or self-care (01) | LOC: US 00:37 | PROVIDERS: ATTEND Internal Medicine | DX: N28.1 Cyst of kidney, acquired (principal); N18.9 Chronic kidney disease, unspecified ==